=== PATIENT | male | born 2000 | race Caucasian/White ===

== ENCOUNTER 2022-03-31 09:46 | Emergency (ER) | payer BC ==
[~2022-03-31] VITALS: Ht 185.4 cm; Wt 101.0 kg
[2022-03-31] MEDS ORDERED: METHYLPREDNISOLONE SOD SUCC 125 MG/2 ML VIAL IM ONE (11:30)
[2022-03-31] MEDS ORDERED: EPIN0.3P3 IM (11:41)
[2022-03-31] MEDS ORDERED: P50 PO (11:41)
[2022-03-31 12:18] VITALS: BP 132/74
== END 2022-03-31 12:18 | disposition home or self-care (01) ==
LOC: ER 10:39
DX: T78.40XA Allergy, unspecified, initial encounter (principal); Z91.030 Bee allergy status; X58.XXXA Exposure to other specified factors, initial encounter
CPT/HCPCS: 96372; 99283; J2930